=== PATIENT | female | born 1965 | race Caucasian/White ===

== ENCOUNTER 2016-11-26 08:31 | Emergency (ER) | payer BC, OTHER ==
[2016-11-26 08:43] VITALS: BP 120/73
--- NOTE | 2016-11-26 08:58 | EDM.PDOC ---
ED HPI GENERAL MEDICAL PROBLEM - General Chief Complaint: Abdominal Pain Stated Complaint: POSSIBLE APPENDIX ISSUE Time Seen by Provider: 11/26/16 08:57 - History of Present Illness INITIAL COMMENTS - FREE TEXT/NARRATIVE: 51-year-old female presents emergency room with abdominal pain. The pain started yesterday afternoon probably 3:00 this progressively gotten worse she had difficulty sleeping through the night. She has not had nausea or vomiting with this him a her stools have been perhaps a little looser than normal, she's had a cholecystectomy in the past and has had intermittent problems with this in the past. 2 nights ago she had heartburn and it sounds like a little bit of reflux and vomited one time but that was before this pain started. Patient states the pain is in the right lower abdomen. Right Middle Abdominal Pain Score (Numeric/FACES): 6 - Related Data Allergies Allergy/AdvReac Type Severity Reaction Status Date / Time corn Allergy Cannot Verified 10/29/15 14:18 Remember mold Allergy Cannot Verified 10/29/15 14:18 Remember yeast, dried [yeast] Allergy Cannot Verified 10/29/15 14:18 Remember Home Meds: Home Meds Fexofenadine/Pseudoephedrine [Karishma-D 12 Hour] 1 tab PO DAILY PRN 10/29/15 [ History] Hydrocodone/Acetaminophen [[place] 5-325 Tablet] 1 - 2 each PO Q6H PRN #40 tablet 10/30/15 [Rx] Ondansetron [Zofran ODT] 4 mg PO Q6H PRN #10 tab.dis 11/26/16 [Rx] Past Medical History HEENT History: Reports: Sinusitis Cardiovascular History: Reports: None Respiratory History: Reports: None Gastrointestinal History: Reports: Other (See Below) Other Gastrointestinal History: epigastric pain [employer] History: Reports: Other OB/BYN History: breast augmentation Musculoskeletal History: Reports: Back Pain, Chronic, Fracture - Past Surgical History HEENT Surgical History: Reports: Tonsillectomy GI Surgical History: Reports: Cholecystectomy, Colonoscopy, Hernia Repair/Other Female Surgical History: Reports: Section, Hysterectomy, LEEP Neurological Surgical History: Reports: C-Spine Musculoskeletal Surgical History: Reports: Other (See Below) Social & Family History - Family History Cardiac: Reports: Hypertension Endocrine/Metabolic: Reports: Hyperthyroidism - Tobacco Use Smoking Status *Q: Current Every Day Smoker Years of Tobacco use: 30 Packs/Tins Daily: 0.5 - Recreational Drug Use Recreational Drug Use: No ED ROS GENERAL - Review of Systems Review Of Systems: See Below Constitutional: Reports: No Symptoms Respiratory: Reports: No Symptoms Cardiovascular: Reports: No Symptoms GI/Abdominal: Reports: Abdominal Pain, Nausea, Vomiting. Denies: Constipation, Diarrhea : Reports: No Symptoms Neurological: Reports: No Symptoms ED EXAM, GI/ABD - Physical Exam Exam: See Below Exam Limited By: No Limitations General Appearance: Alert, No Apparent Distress Respiratory/Chest: No Respiratory Distress, Lungs Clear, Normal Breath Sounds Cardiovascular: Regular Rate, Rhythm, No Edema, No Murmur GI/Abdominal: Normal Bowel Sounds, Soft, Other (Is mild right lower quadrant discomfort with palpation no rebound discomfort or guarding however with rebound testing on the left lower abdomen she had a shooting pain into the right lower abdomen) Back Exam: Normal Inspection. No: CVA Tenderness (L), CVA Tenderness (R) Extremities: Normal Inspection Neurological: Alert, Oriented Course - Vital Signs Last Recorded V/S: Last Vital Signs Temp 37.2 C 11/26/16 08:40 Pulse 65 11/26/16 08:40 Resp 16 11/26/16 08:40 BP 120/73 11/26/16 08:40 Pulse Ox 97 11/26/16 08:40 - Orders/Labs/Meds Orders: Active Orders 24 hr Category Date Time Status Sodium Chloride 0.9% [Saline Flush] Med 11/26/16 11:18 Active 10 ml FLUSH ONETIME PRN Medication Orders Sodium Chloride (Saline Flush) 10 ml FLUSH ONETIME PRN PRN Reason: IV FLUSH Last Admin: 11/26/16 12:11 Dose: 10 ml Labs: Laboratory Tests 11/26/16 11/26/16 11/26/16 Range/Units 08:45 08:45 09:26 WBC 6.96 (3.98-10.04) K/mm3 RBC 4.77 (3.98-5.22) M/mm3 Hgb 13.9 (11.2-15.7) gm/L Hct 42.6 (34.1-44.9) % MCV 89.3 (79.4-94.8) fl MCH 29.1 (25.6-32.2) pg MCHC 32.6 (32.2-35.5) g/dl RDW Std Deviation 44.1 (36.4-46.3) fL Plt Count 305 (182-369) K/mm3 MPV 9.4 (9.4-12.3) fl Neutrophils % (Manual) 55 (40-60) % Band Neutrophils % 0 (0-10) % Lymphocytes % (Manual) 31 (20-40) % Atypical Lymphs % 0 % Monocytes % (Manual) 5 (2-10) % Eosinophils % (Manual) 8 H (0.7-5.8) % Basophils % (Manual) 1 (0.1-1.2) Platelet Estimate Adequate RBC Morph Comment Normal Sodium (136-145) mEq/L Potassium (3.5-5.1) mEq/L Chloride (98-107) mEq/L Carbon Dioxide (21-32) mEq/L Anion Gap (5-15) BUN (7-18) mg/dL Creatinine (0.55-1.02) mg/dL Est Cr Clr Drug Dosing Estimated GFR (MDRD) (>60) mL/min BUN/Creatinine Ratio (14-18) Glucose (74-106) mg/dL Calcium (8.5-10.1) mg/dL Total Bilirubin (0.2-1.0) mg/dL AST (15-37) U/L ALT (14-59) U/L Alkaline Phosphatase (46-116) U/L Total Protein (6.4-8.2) g/dl Albumin (3.4-5.0) g/dl Globulin gm/dL Albumin/Globulin Ratio (1-2) Urine Color Yellow (Yellow) Urine Appearance Clear (Clear) Urine pH 6.0 (5.0-8.0) Ur Specific [place] 1.025 (1.005-1.030) Urine Protein Negative (Negative) Urine Glucose (UA) Negative (Negative) Urine Ketones Negative (Negative) Urine Occult Blood Trace-lysed H (Negative) Urine Nitrite Negative (Negative) Urine Bilirubin Negative (Negative) Urine Urobilinogen 0.2 (0.2-1.0) Ur Leukocyte Esterase Negative (Negative) Urine RBC 0-5 (0-5) /hpf Urine WBC 0-5 (0-5) /hpf Ur Epithelial Cells 5-10 H (0-5) /hpf Urine Bacteria Moderate H (FEW) /hpf Urine Mucus Few (FEW) /hpf Urine HCG, Qual Negative (NEGATIVE) 11/26/16 Range/Units 09:26 WBC (3.98-10.04) K/mm3 RBC (3.98-5.22) M/mm3 Hgb (11.2-15.7) gm/L Hct (34.1-44.9) % MCV (79.4-94.8) fl MCH (25.6-32.2) pg MCHC (32.2-35.5) g/dl RDW Std Deviation (36.4-46.3) fL Plt Count (182-369) K/mm3 MPV (9.4-12.3) fl Neutrophils % (Manual) (40-60) % Band Neutrophils % (0-10) % Lymphocytes % (Manual) (20-40) % Atypical Lymphs % % Monocytes % (Manual) (2-10) % Eosinophils % (Manual) (0.7-5.8) % Basophils % (Manual) (0.1-1.2) Platelet Estimate RBC Morph Comment Sodium 145 (136-145) mEq/L Potassium 4.5 (3.5-5.1) mEq/L Chloride 108 H (98-107) mEq/L Carbon Dioxide 27 (21-32) mEq/L Anion Gap 14.5 (5-15) BUN 16 (7-18) mg/dL Creatinine 0.9 (0.55-1.02) mg/dL Est Cr Clr Drug Dosing TNP Estimated GFR (MDRD) > 60 (>60) mL/min BUN/Creatinine Ratio 17.8 (14-18) Glucose 97 (74-106) mg/dL Calcium 8.9 (8.5-10.1) mg/dL Total Bilirubin 0.9 (0.2-1.0) mg/dL AST 17 (15-37) U/L ALT 29 (14-59) U/L Alkaline Phosphatase 114 (46-116) U/L Total Protein 7.1 (6.4-8.2) g/dl Albumin 3.8 (3.4-5.0) g/dl Globulin 3.3 gm/dL Albumin/Globulin Ratio 1.2 (1-2) Urine Color (Yellow) Urine Appearance (Clear) Urine pH (5.0-8.0) Ur Specific [place] (1.005-1.030) Urine Protein (Negative) Urine Glucose (UA) (Negative) Urine Ketones (Negative) Urine Occult Blood (Negative) Urine Nitrite (Negative) Urine Bilirubin (Negative) Urine Urobilinogen (0.2-1.0) Ur Leukocyte Esterase (Negative) Urine RBC (0-5) /hpf Urine WBC (0-5) /hpf Ur Epithelial Cells (0-5) /hpf Urine Bacteria (FEW) /hpf Urine Mucus (FEW) /hpf Urine HCG, Qual (NEGATIVE) Meds: Medications Generic Name Dose Route Start Last Admin Trade Name Freq PRN Reason Stop Dose Admin Sodium Chloride 10 ml 11/26/16 11:18 11/26/16 12:11 Saline Flush FLUSH 10 ml ONETIME PRN Administration IV FLUSH Discontinued Medications Generic Name Dose Route Start Last Admin Trade Name Freq PRN Reason Stop Dose Admin Diatrizoate Meglum/Diatrizoate Sod 90 ml 11/26/16 11:18 11/26/16 12:11 Gastrografin 37% PO 11/26/16 11:19 90 ml ONETIME ONE Administration Lactated Ringer's 1,000 mls @ 999 mls/hr 11/26/16 10:45 11/26/16 11:00 Ringers, Lactated IV 11/26/16 11:45 999 mls/hr .BOLUS ONE Administration Iopamidol 100 ml 11/26/16 11:18 11/26/16 12:11 Isovue-300 (61%) IVPUSH 11/26/16 11:19 100 ml ONETIME ONE Administration - Re-Assessments/Exams Free Text/Narrative Re-Assessment/Exam: 11/26/16 09:46 Labs and x-ray ordered the patient is not need anything for pain at this time. 11/26/16 10:44 Return evaluation nondiagnostic x-ray is needed for acute abdominal changes. Repeat examination shows slightly worsening discomfort with palpation in the right lower quadrant no definitive rebound or guarding. Further evaluation discussed with the patient we will proceed with a CT scan 11/26/16 12:54 CT examination is unrevealing the appendix is well-visualized and appears normal. No other inflammatory changes or free fluid seen. Patient has been informed of the results of this point we'll discharge the patient home liquid diet for 24 hours and slowly advance as tolerated recheck in 24 hours if not better sooner if getting worse. Departure - Departure Time of Disposition: 12:54 Disposition: Home, Self-Care 01 Clinical Impression: Abdominal pain of unknown etiology - Discharge Information Forms: ED Department Discharge Additional Instructions: Return to the emergency room with any questions or problems. Return in 24 hours if not better sooner if getting worse. Clear liquid diet for the next 24 hours then slowly advance as tolerated. You have be started on Zofran, this is to be used as needed for nausea. One every 6 hours as needed. - My Orders Last 24 Hours: My Active Orders 11/26/16 11:18 Sodium Chloride 0.9% [Saline Flush] 10 ml FLUSH ONETIME PRN - Assessment/Plan Last 24 Hours: My Active Orders 11/26/16 11:18 Sodium Chloride 0.9% [Saline Flush] 10 ml FLUSH ONETIME PRN
--- NOTE | 2016-11-26 09:57 | CR ---
Abdomen: Supine view of the abdomen was obtained. Comparison: Previous abdominal x-ray of 06/10/15. Surgical clips noted from prior cholecystectomy. Other surgical material is seen within the mid abdomen which is stable from prior exam. Bowel gas pattern appears normal. No abnormal calcifications or soft tissue abnormality is seen. Bony structures appear within normal limits for the patient's age. Impression: 1. Incidental findings. Diagnostic code #2
[2016-11-26] MEDS ORDERED: Lactated Ringers 1,000 ML IV ONE (10:45)
[2016-11-26] MEDS ORDERED: Sodium Chloride 0.9% 10 ML Syringe FLUSH PRN (11:18)
[2016-11-26] MEDS ORDERED: Iopamidol 612 MG/ML 100 ML Bottle IVPUSH ONE (11:18)
[2016-11-26] MEDS ORDERED: Diatrizoate Meglumine/Diatrizoate Sodium 37% 120 ML Bottle PO ONE (11:18)
--- NOTE | 2016-11-26 12:42 | CT ---
CT abdomen and pelvis Technique: Multiple axial sections were obtained from above the dome of the diaphragm inferiorly through the pubic symphysis. Intravenous and oral contrast was utilized. Delayed images were also obtained through the bladder. Comparison: Previous CT abdomen and pelvis study performed as a ureteral stone protocol dated 06/11/15. Findings: Small portion of the visualized lung bases shows linear scarring on the left side. Nothing acute is seen. Minimal low density areas are seen within the left lobe of liver measuring around 2 mm in size which is felt to be incidental. Liver is otherwise unremarkable. Spleen appears normal. Adrenal glands show no nodule. Pancreas is within normal limits. Surgical clips are seen from prior cholecystectomy. Kidneys show symmetric contrast enhancement without hydronephrosis or mass. Aorta shows no aneurysmal dilatation. No retroperitoneal adenopathy is seen. No mesenteric abnormalities are seen. Surgical material is seen within the anterior abdominal wall. No pelvic mass or adenopathy is seen. Appendix is seen which appears normal. No bowel dilatation is seen. No inflammatory change or free fluid is seen. Delayed images shows contrast within the bladder. Bone window settings were reviewed which appears within normal limits for the patient's age. Impression: 1. Incidental findings. Nothing acute is appreciated on CT study of the abdomen and pelvis. Diagnostic code #2
== END 2016-11-26 13:20 | disposition home or self-care (01) ==
LOC: JD.ED 08:31
DX: R10.31 Right lower quadrant pain (principal); F17.210 Nicotine dependence, cigarettes, uncomplicated; Z91.018 Allergy to other foods; Z79.899 Other long term (current) drug therapy; Z98.890 Other specified postprocedural states; Z90.49 Acquired absence of other specified parts of digestive tract; Z90.710 Acquired absence of both cervix and uterus
CPT/HCPCS: 36415; 74000; 74177; 80053; 81001; 81025; 85025; 96360; 99285; J7050; J7120; Q9963; Q9967; 99284

== ENCOUNTER 2018-04-04 10:25 | Emergency (ER) | payer OTHER, BC ==
[2018-04-04 10:34] VITALS: BP 132/85
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
== END 2018-04-04 11:25 | disposition home or self-care (01) ==
LOC: JD.ED 10:25
DX: M25.512 Pain in left shoulder (principal); M25.552 Pain in left hip; F17.210 Nicotine dependence, cigarettes, uncomplicated; Z91.048 Other nonmedicinal substance allergy status; Z79.899 Other long term (current) drug therapy; V43.53XA Car driver injured in collision with pick-up truck in traffic accident, initial encounter
CPT/HCPCS: 99283; 99284

== ENCOUNTER 2019-06-01 18:00 | Emergency (ER) | payer BC | END 2019-06-01 18:15 | LOC: JD.ED 18:00 | DX: Z53.21 Procedure and treatment not carried out due to patient leaving prior to being seen by health care provider (principal) ==

== ENCOUNTER 2021-05-25 10:40 | Emergency (ER) | payer MEDICAID ==
[2021-05-25] MEDS ORDERED: Sodium Chloride 0.9% 10 ML Syringe FLUSH PRN (11:00)
[2021-05-25] MEDS ORDERED: Ondansetron 4 MG/2 ML SDV IVPUSH ONE (11:00)
[2021-05-25] MEDS ORDERED: Sodium Chloride 0.9% 1,000 ML IV SCH (11:00)
[2021-05-25] MEDS ORDERED: Albuterol/Ipratropium 3.0-0.5 MG/3 ML Neb Soln NEB ONE (11:01)
[2021-05-25] MEDS ORDERED: diphenhydrAMINE 50 MG/ML SDV IVPUSH PRN (11:03)
[2021-05-25] MEDS ORDERED: methylPREDNISolone Sodium Succinate 125 MG/2 ML SDV IVPUSH PRN (11:03)
[2021-05-25] MEDS ORDERED: EPINEPHrine 1 MG/ML SDV IM PRN (11:03)
[2021-05-25] MEDS ORDERED: Famotidine 20 MG/2 ML SDV IVPUSH PRN (11:03)
[2021-05-25] MEDS ORDERED: Sodium Chloride 0.9% 10 ML Syringe FLUSH SCH (11:15)
--- NOTE | 2021-05-25 12:33 | CR ---
Chest: Frontal view of the chest was obtained. Comparison: No prior chest imaging is available Heart size and mediastinum are normal. Very minimal density is seen within the left lung base most likely due to slight atelectasis. Lungs otherwise are clear. Bony structures show nothing acute. Impression: 1. Findings suspicious for minimal left basilar atelectasis. 2. Nothing acute is seen on frontal chest x-ray. Diagnostic code #2
[2021-05-25] MEDS ORDERED: Dexamethasone 4 MG Tab PO ONE (14:20)
--- NOTE | 2021-05-25 14:20 | EDM.PDOC ---
ED HPI GENERAL MEDICAL PROBLEM - General Chief Complaint: General Stated Complaint: COVID+ HEAVY CHEST Time Seen by Provider: 05/25/21 10:53 Source of Information: Reports: Patient History Limitations: Reports: No Limitations - History of Present Illness INITIAL COMMENTS - FREE TEXT/NARRATIVE: The patient presents presents with COVID. She was diagnosed on the . She has fever, chills, cough, nausea and generalized weakness. She is looking to get the monoclonal antibodies. She has no diarrhea or vomiting. She has no health problems like asthma, COPD, or heart disease. She does smoke but has not smoked since she got diagnosed. Onset: Gradual Duration: Day(s): Severity: Mild Improves with: Reports: None Worsens with: Reports: None Associated Symptoms: Reports: Cough, Fever/Chills, Nausea/Vomiting Chest Pain Score (Numeric/FACES): 3 - Related Data Allergies Allergy/AdvReac Type Severity Reaction Status Date / Time corn Allergy Cannot Verified 05/25/21 10:57 Remember mold Allergy Cannot Verified 05/25/21 10:57 Remember yeast, dried [yeast] Allergy Cannot Verified 05/25/21 10:57 Remember Home Meds: Home Meds Fexofenadine/Pseudoephedrine [Karishma-D 12 Hour] 1 tab PO DAILY PRN 10/29/15 [History] Hydrocodone/Acetaminophen [[place] 5-325 Tablet] 1 - 2 each PO Q6H PRN #40 tablet 10/30/15 [Rx] Ibuprofen [Advil] 2 - 3 tab PO Q6H PRN 04/04/18 [History] dexAMETHasone [Dexamethasone] 6 mg PO Q6H #12 tab 05/25/21 [Rx] Past Medical History HEENT History: Reports: Sinusitis Cardiovascular History: Reports: None Respiratory History: Reports: None Gastrointestinal History: Reports: Other (See Below) Other Gastrointestinal History: epigastric pain Genitourinary History: Reports: UTI, Recurrent DIGITAL ASSET SPECIALIST History: Reports: Other DIGITAL ASSET SPECIALIST History: breast augmentation Musculoskeletal History: Reports: Back Pain, Chronic, Fracture Neurological History: Reports: Head Trauma - Infectious Disease History Infectious Disease History: Reports: Chicken Pox, Measles - Past Surgical History HEENT Surgical History: Reports: Tonsillectomy GI Surgical History: Reports: Cholecystectomy, Colonoscopy, Hernia, Abdominal Female Surgical History: Reports: Breast Implant, Section, Hysterectomy, LEEP Neurological Surgical History: Reports: C-Spine Musculoskeletal Surgical History: Reports: ORIF, Other (See Below) Other Musculoskeletal Surgeries/Procedures:: plate to neck, wrist surgery--plate, pins to fingers Social & Family History - Family History Cardiac: Reports: Hypertension Endocrine/Metabolic: Reports: Hyperthyroidism - Tobacco Use Tobacco Use Status *Q: Current Every Day Tobacco User Years of Tobacco use: 30 Packs/Tins Daily: 0.1 - Caffeine Use Caffeine Use: Reports: None - Living Situation & Occupation Living situation: Reports: , with Significant Other (Boyfriend) Occupation: Employed ([employer]) ED ROS GENERAL - Review of Systems Review Of Systems: See Below Constitutional: Reports: Fever, Chills, Malaise, Weakness, Fatigue HEENT: Reports: No Symptoms Respiratory: Reports: Shortness of Breath, Cough Cardiovascular: Reports: No Symptoms Endocrine: Reports: No Symptoms GI/Abdominal: Reports: Nausea. Denies: Abdominal Pain, Vomiting ED EXAM, GENERAL - Physical Exam Exam: See Below Exam Limited By: No Limitations General Appearance: Alert, No Apparent Distress Ears: Normal External Exam Nose: Normal Inspection Head: Atraumatic, Normocephalic Neck: Normal Inspection Respiratory/Chest: No Respiratory Distress, Lungs Clear, Normal Breath Sounds Cardiovascular: Regular Rate, Rhythm, No Edema, No Murmur GI/Abdominal: Soft, Non-Tender, No Organomegaly, No Mass Extremities: Normal Inspection #1 Interpretation EKG Date: 05/25/21 Time: 10:48 Rhythm: NSR Rate (Beats/Min): 67 [place]: Normal P-Wave: Present QRS: Normal ST-T: Normal QT: Normal Course - Vital Signs Last Recorded V/S: Last Vital Signs Temp 97.8 F 05/25/21 10:54 Pulse 59 L 05/25/21 10:54 Resp 16 05/25/21 10:54 BP 106/75 05/25/21 10:54 Pulse Ox 95 05/25/21 11:01 - Orders/Labs/Meds Orders: Active Orders 24 hr Category Date Time Status Cardiac Monitoring [RC] . DIRECTED Care 05/25/21 11:00 Active Peripheral IV Care [RC] . DIRECTED Care 05/25/21 11:00 Active RT Aerosol Therapy [RC] ASDIRECTED Care 05/25/21 11:01 Active Vital Signs [RC] Q15M Care 05/25/21 11:03 Active EPINEPHrine [Adrenalin] Med 05/25/21 11:03 Active 0.3 mg IM ASDIRECTED PRN Famotidine [Pepcid] Med 05/25/21 11:03 Active 20 mg IVPUSH ASDIRECTED PRN Sodium Chloride 0.9% [Normal Saline] 1,000 ml Med 05/25/21 11:00 Active IV .BOLUS Sodium Chloride 0.9% [Saline Flush] Med 05/25/21 11:00 Active 10 ml FLUSH ASDIRECTED PRN Sodium Chloride 0.9% [Saline Flush] Med 05/25/21 11:15 Active 30 ml FLUSH ASDIRECTED diphenhydrAMINE [Benadryl] Med 05/25/21 11:03 Active 50 mg IVPUSH ASDIRECTED PRN methylPREDNISolone Sod Succ [Solu-MEDROL] Med 05/25/21 11:03 Active 125 mg IVPUSH ASDIRECTED PRN ED Antiemetic Medication Reflex [OM.PC] Stat Oth 05/25/21 11:00 Ordered Peripheral IV Insertion Adult [OM.PC] Stat Oth 05/25/21 11:00 Ordered Medication Orders Diphenhydramine HCl (Diphenhydramine 50 Mg/Ml Sdv) 50 mg IVPUSH ASDIRECTED PRN PRN Reason: hypersensitivity reaction Epinephrine HCl (Epinephrine 1 Mg/Ml Sdv) 0.3 mg IM ASDIRECTED PRN PRN Reason: hypersensitivity reaction Famotidine (Famotidine 20 Mg/2 Ml Sdv) 20 mg IVPUSH ASDIRECTED PRN PRN Reason: hypersensitivity reaction Sodium Chloride (Normal Saline) 1,000 mls @ 1,000 mls/hr IV .BOLUS LION Last Admin: 05/25/21 11:30 Dose: 1,000 mls/hr Documented by: JANICE Methylprednisolone Sodium Succinate (Methylprednisolone Sodium Succinate 125 Mg/2 Ml Sdv) 125 mg IVPUSH ASDIRECTED PRN PRN Reason: hypersensitivity reaction Sodium Chloride (Sodium Chloride 0.9% 10 Ml Syringe) 30 ml FLUSH ASDIRECTED LION Sodium Chloride (Sodium Chloride 0.9% 10 Ml Syringe) 10 ml FLUSH ASDIRECTED PRN PRN Reason: Keep Vein Open Labs: Laboratory Tests 05/25/21 05/25/21 05/25/21 Range/Units 11:20 11:20 11:20 WBC 3.49 L (3.98-10.04) K/mm3 RBC 4.76 (3.98-5.22) M/mm3 Hgb 13.9 (11.2-15.7) gm/dl Hct 42.8 (34.1-44.9) % MCV 89.9 (79.4-94.8) fl MCH 29.2 (25.6-32.2) pg MCHC 32.5 (32.2-35.5) g/dl RDW Std Deviation 41.9 (36.4-46.3) fL Plt Count 213 D (182-369) K/mm3 MPV 9.7 (9.4-12.3) fl Neut % (Auto) 40.6 (34.0-71.1) % Lymph % (Auto) 45.3 (19.3-51.7) % [place]th % (Auto) 12.6 H (4.7-12.5) % Eos % (Auto) 0.9 (0.7-5.8) Baso % (Auto) 0.3 (0.1-1.2) % Neut # (Auto) 1.42 L (1.56-6.13) K/mm3 Lymph # (Auto) 1.58 (1.18-3.74) K/mm3 Smyth # (Auto) 0.44 H (0.24-0.36) K/mm3 Eos # (Auto) 0.03 L (0.04-0.36) K/mm3 Baso # (Auto) 0.01 (0.01-0.08) K/mm3 D-Dimer, Quantitative 0.37 (0.19-0.50) mg/L Sodium 139 (136-145) mEq/L Potassium 3.8 (3.5-5.1) mEq/L Chloride 107 (98-107) mEq/L Carbon Dioxide 22 (21-32) mEq/L Anion Gap 13.8 (5-15) BUN 16 (7-18) mg/dL Creatinine 0.8 (0.55-1.02) mg/dL Est Cr Clr Drug Dosing TNP Estimated GFR (MDRD) > 60 (>60) mL/min BUN/Creatinine Ratio 20.0 H (14-18) Glucose 85 (70-99) mg/dL Lactic Acid (0.4-2.0) mmol/L Calcium 8.3 L (8.5-10.1) mg/dL Total Bilirubin 0.3 (0.2-1.0) mg/dL AST 27 (15-37) U/L ALT 48 (14-59) U/L Alkaline Phosphatase 110 (46-116) U/L Troponin I < 0.017 (0.00-0.056) ng/mL C-Reactive Protein <0.2 (<1.0) mg/dL Total Protein 6.9 (6.4-8.2) g/dl Albumin 3.5 (3.4-5.0) g/dl Globulin 3.4 gm/dL Albumin/Globulin Ratio 1.0 (1-2) // Range/Units 11:20 WBC (3.98-10.04) K/mm3 RBC (3.98-5.22) M/mm3 Hgb (11.2-15.7) gm/dl Hct (34.1-44.9) % MCV (79.4-94.8) fl MCH (25.6-32.2) pg MCHC (32.2-35.5) g/dl RDW Std Deviation (36.4-46.3) fL Plt Count (182-369) K/mm3 MPV (9.4-12.3) fl Neut % (Auto) (34.0-71.1) % Lymph % (Auto) (19.3-51.7) % [place] % (Auto) (4.7-12.5) % Eos % (Auto) (0.7-5.8) Baso % (Auto) (0.1-1.2) % Neut # (Auto) (1.56-6.13) K/mm3 Lymph # (Auto) (1.18-3.74) K/mm3 [place]th # (Auto) (0.24-0.36) K/mm3 Eos # (Auto) (0.04-0.36) K/mm3 Baso # (Auto) (0.01-0.08) K/mm3 D-Dimer, Quantitative (0.19-0.50) mg/L Sodium (136-145) mEq/L Potassium (3.5-5.1) mEq/L Chloride (98-107) mEq/L Carbon Dioxide (21-32) mEq/L Anion Gap (5-15) BUN (7-18) mg/dL Creatinine (0.55-1.02) mg/dL Est Cr Clr Drug Dosing Estimated GFR (MDRD) (>60) mL/min BUN/Creatinine Ratio (14-18) Glucose (70-99) mg/dL Lactic Acid 1.0 (0.4-2.0) mmol/L Calcium (8.5-10.1) mg/dL Total Bilirubin (0.2-1.0) mg/dL AST (15-37) U/L ALT (14-59) U/L Alkaline Phosphatase (46-116) U/L Troponin I (0.00-0.056) ng/mL C-Reactive Protein (<1.0) mg/dL Total Protein (6.4-8.2) g/dl Albumin (3.4-5.0) g/dl Globulin gm/dL Albumin/Globulin Ratio (1-2) Meds: Medications Generic Name Dose Route Start Last Admin Trade Name Freq PRN Reason Stop Dose Admin Diphenhydramine HCl 50 mg 05/25/21 11:03 Diphenhydramine 50 Mg/Ml Sdv IVPUSH ASDIRECTED PRN hypersensitivity reaction Epinephrine HCl 0.3 mg 05/25/21 11:03 Epinephrine 1 Mg/Ml Sdv IM ASDIRECTED PRN hypersensitivity reaction Famotidine 20 mg 05/25/21 11:03 Famotidine 20 Mg/2 Ml Sdv IVPUSH ASDIRECTED PRN hypersensitivity reaction Sodium Chloride 1,000 mls @ 1,000 mls/hr 05/25/21 11:00 05/25/21 11:30 Normal Saline IV 1,000 mls/hr .BOLUS LION Administration Methylprednisolone Sodium Succinate 125 mg 05/25/21 11:03 Methylprednisolone Sodium Succinate 125 Mg/2 Ml Sdv IVPUSH ASDIRECTED PRN hypersensitivity reaction Sodium Chloride 30 ml 05/25/21 11:15 Sodium Chloride 0.9% 10 Ml Syringe FLUSH ASDIRECTED LION Sodium Chloride 10 ml 05/25/21 11:00 Sodium Chloride 0.9% 10 Ml Syringe FLUSH ASDIRECTED PRN Keep Vein Open Discontinued Medications Generic Name Dose Route Start Last Admin Trade Name Freq PRN Reason Stop Dose Admin Albuterol/Ipratropium 3 ml 05/25/21 11:01 05/25/21 11:13 Albuterol/Ipratropium 3.0-0.5 Mg/3 Ml Neb Soln NEB 05/25/21 11:02 3 ml ONETIME ONE Administration Bamlanivimab 700 mg/ 310 mls @ 310 mls/hr 05/25/21 12:00 05/25/21 11:43 Etesevimab 1,400 mg/ Sodium IV 05/25/21 12:59 310 mls/hr Chloride ONETIME ONE Administration Ondansetron HCl 4 mg 05/25/21 11:00 05/25/21 11:25 Ondansetron 4 Mg/2 Ml Sdv IVPUSH 05/25/21 11:01 4 mg ONETIME ONE Administration - Re-Assessments/Exams Free Text/Narrative Re-Assessment/Exam: 05/25/21 14:19 I ordered an IV NS 1L bolus, zofran 4mg IV, regeneron, CXR, and labs. Her CXR looks good. Her WBC is low at 3.49. Her D-dimer was negative. Her CMP looks good. Her troponin is negative. Her CRP is normal. 05/25/21 14:22 She feels better. I will get her on some dexamethasone. 05/25/21 14:22 Her CXR looks good. It shows no sign of COVID pneumonia. Departure - Departure Time of Disposition: 14:25 Disposition: Home, Self-Care 01 Condition: Good Clinical Impression: COVID - Discharge Information *PRESCRIPTION DRUG MONITORING PROGRAM REVIEWED*: Not Applicable *COPY OF PRESCRIPTION DRUG MONITORING REPORT IN PATIENT ELIANE: Not Applicable Prescriptions: dexAMETHasone [Dexamethasone] 6 mg PO Q6H #12 tab Referrals: Yessica Pulido NP [Primary Care Provider] - 1 Week Additional Instructions: Take the dexamethasone 1.5 pills daily until gone. Take tylenol or motrin as needed for fever or pain. Drink plenty of fluids. Use your inhaler as needed for shortness of breath. Please return if you are worse. Sepsis Event Note (ED) - Evaluation Sepsis Screening Result: No Definite Risk - Focused Exam Vital Signs: Vital Signs Temp Pulse Resp BP Pulse Ox Pulse Ox 05/25/21 11:01 95 05/25/21 10:54 97.8 F 59 L 16 106/75 94 L - My Orders Last 24 Hours: My Active Orders 05/25/21 11:00 Cardiac Monitoring [RC] . DIRECTED Peripheral IV Care [RC] . DIRECTED Sodium Chloride 0.9% [Normal Saline] 1,000 ml IV .BOLUS Sodium Chloride 0.9% [Saline Flush] 10 ml FLUSH ASDIRECTED PRN ED Antiemetic Medication Reflex [OM.PC] Stat Peripheral IV Insertion Adult [OM.PC] Stat 05/25/21 11:01 RT Aerosol Therapy [RC] ASDIRECTED 05/25/21 11:03 Vital Signs [RC] Q15M EPINEPHrine [Adrenalin] 0.3 mg IM ASDIRECTED PRN Famotidine [Pepcid] 20 mg IVPUSH ASDIRECTED PRN diphenhydrAMINE [Benadryl] 50 mg IVPUSH ASDIRECTED PRN methylPREDNISolone Sod Succ [Solu-MEDROL] 125 mg IVPUSH ASDIRECTED PRN 05/25/21 11:15 Sodium Chloride 0.9% [Saline Flush] 30 ml FLUSH ASDIRECTED - Assessment/Plan Last 24 Hours: My Active Orders 05/25/21 11:00 Cardiac Monitoring [RC] . DIRECTED Peripheral IV Care [RC] . DIRECTED Sodium Chloride 0.9% [Normal Saline] 1,000 ml IV .BOLUS Sodium Chloride 0.9% [Saline Flush] 10 ml FLUSH ASDIRECTED PRN ED Antiemetic Medication Reflex [OM.PC] Stat Peripheral IV Insertion Adult [OM.PC] Stat 05/25/21 11:01 RT Aerosol Therapy [RC] ASDIRECTED 05/25/21 11:03 Vital Signs [RC] Q15M EPINEPHrine [Adrenalin] 0.3 mg IM ASDIRECTED PRN Famotidine [Pepcid] 20 mg IVPUSH ASDIRECTED PRN diphenhydrAMINE [Benadryl] 50 mg IVPUSH ASDIRECTED PRN methylPREDNISolone Sod Succ [Solu-MEDROL] 125 mg IVPUSH ASDIRECTED PRN 05/25/21 11:15 Sodium Chloride 0.9% [Saline Flush] 30 ml FLUSH ASDIRECTED
[2021-05-25 14:33] VITALS: BP 113/49; PULSE 56
== END 2021-05-25 14:33 | disposition home or self-care (01) ==
LOC: JD.ED 10:40
DX: U07.1 COVID-19 (principal); Z91.018 Allergy to other foods; Z91.048 Other nonmedicinal substance allergy status; Z72.0 Tobacco use
CPT/HCPCS: 36415; 71045; 80053; 83605; 84484; 85025; 85379; 86140; 93005; 94640; 96374; 99285; J2405; J7030; J7050; J8540; M0245; Q0245; 93010; 99284; J7620-GY

== ENCOUNTER 2021-09-10 11:28 | Emergency (ER) | payer BC, MEDICAID ==
[2021-09-10 12:11] VITALS: BP 110/80; PULSE 69
== END 2021-09-10 15:19 | disposition home or self-care (01) ==
LOC: JD.ED 11:28
DX: S09.90XA Unspecified injury of head, initial encounter (principal); M62.838 Other muscle spasm; Z91.018 Allergy to other foods; Z91.048 Other nonmedicinal substance allergy status; W01.198A Fall on same level from slipping, tripping and stumbling with subsequent striking against other object, initial encounter
CPT/HCPCS: 70450; 70450-26; 72125; 72125-26; 99283-25; 99284

== ENCOUNTER 2022-05-20 09:01 | Emergency (ER) | payer MEDICAID ==
[2022-05-20 10:30] VITALS: BP 117/56; PULSE 75
== END 2022-05-20 13:39 | disposition home or self-care (01) ==
LOC: JD.ED 09:01
DX: K21.9 Gastro-esophageal reflux disease without esophagitis (principal); Z91.018 Allergy to other foods; Z79.899 Other long term (current) drug therapy; Z90.49 Acquired absence of other specified parts of digestive tract; Z87.891 Personal history of nicotine dependence
CPT/HCPCS: 36415; 71045; 71045-26; 85025; 93005; 99284

== ENCOUNTER 2023-07-19 13:25 | Emergency (ER) | payer MEDICAID ==
[2023-07-19] MEDS ORDERED: Sodium Chloride 0.9% 10 ML Syringe FLUSH PRN (13:42)
[2023-07-19 14:09] LABS: APPEARANCE,URINE CLEAR (Clear); BILIRUBIN,URINE NEGATIVE (Negative); COLOR,URINE YELLOW (Yellow); GLUCOSE,URINE NEGATIVE (Negative); KETONES,URINE NEGATIVE (Negative); LEUKOCYTE ESTERASE,URINE 2+ (Negative); NITRITE,URINE NEGATIVE (Negative); OCCULT BLOOD,URINE TRACE-INTACT (Negative); PROTEIN,URINE NEGATIVE (Negative); UROBILINOGEN,URINE 0.2 (0.2-1.0)
[2023-07-19 14:27] LABS: BASOPHILS ABSOLUTE AUTO 0.1 K/mm3 (0.0-0.2); BASOPHILS PERCENT AUTO 0.9 % (0.0-1.0); EOSINOPHILS ABSOLUTE AUTO 0.3 K/mm3 (0.0-0.4); EOSINOPHILS PERCENT AUTO 3.5 % (0.0-6.0); HEMATOCRIT 40.8 % (37.0-47.0); HEMOGLOBIN 13.5 gm/dl (12.0-16.0); IMMATURE GRAN ABSOLUTE AUTO 0.02 K/mm3 (0.00-0.05); IMMATURE GRAN PERCENT AUTO 0.2 % (0.0-0.4); LYMPHOCYTES ABSOLUTE AUTO 3.2 K/mm3 (1.0-4.8); LYMPHOCYTES PERCENT AUTO 40.4 % (24.0-44.0); MEAN CORPUSCULAR HEMOGLOBIN 29.7 pg (28.0-32.0); MEAN CORPUSCULAR HGB CONC 33.1 g/dl (32.0-36.0); MEAN CORPUSCULAR VOLUME 89.9 fl (83.0-99.0); MEAN PLATELET VOLUME 8.9 fl (9.4-12.3); MONOCYTES ABSOLUTE AUTO 0.6 K/mm3 (0.0-0.8); NEUTROPHILS ABSOLUTE AUTO 3.8 K/mm3 (1.8-7.7); PLATELET COUNT,PLT 287 K/mm3 (150-400); RED BLOOD CELL COUNT 4.54 M/mm3 (4.10-5.30); WHITE BLOOD CELL COUNT,WBC 8.01 K/mm3 (3.9-11.3)
[2023-07-19 14:34] LABS: BACTERIA,URINE MODERATE /hpf (FEW); MUCUS,URINE MANY /hpf (FEW); WBC,URINE 20-30 /hpf (0-5)
[2023-07-19 14:58] LABS: A/G RATIO 0.9 (1-2); ALBUMIN 3.3 g/dl (3.4-5.0); ANION GAP 13.4 (5-15); BILIRUBIN TOTAL 0.8 mg/dL (0.2-1.0); BUN/CREATININE RATIO 17.5 (14-18); CALCIUM 8.6 mg/dL (8.5-10.1); CREATININE 0.8 mg/dL (0.55-1.02); EST CRCL DRUG DOSING (CG) 69.81 mL/min; MAGNESIUM 1.9 mg/dL (1.8-2.4); POTASSIUM,K 3.4 mEq/L (3.5-5.1); PROTEIN TOTAL,TP 6.8 g/dl (6.4-8.2)
[2023-07-19 16:00] VITALS: BP 121/65; PULSE 70
== END 2023-07-19 15:50 | disposition home or self-care (01) ==
LOC: JD.ED 13:25
DX: N39.0 Urinary tract infection, site not specified (principal); K21.9 Gastro-esophageal reflux disease without esophagitis; Z86.16 Personal history of COVID-19; Z90.49 Acquired absence of other specified parts of digestive tract; Z90.710 Acquired absence of both cervix and uterus; Z79.899 Other long term (current) drug therapy; Z91.018 Allergy to other foods; Z91.048 Other nonmedicinal substance allergy status
CPT/HCPCS: 36415; 71046; 71046-26; 80053; 81001; 83735; 84484; 85025; 93005; 93010; 99283; 99285

== ENCOUNTER 2024-04-01 13:31 | Emergency (ER) | payer MEDICAID ==
[2024-04-01 13:43] VITALS: BP 122/74; PULSE 70
[2024-04-01] MEDS: Sodium Chloride 0.9% 1,000 ML IV STA (14:42)
[2024-04-01] MEDS: Sodium Chloride 0.9% 10 ML Syringe FLUSH PRN (14:42)
[2024-04-01 14:56] LABS: BASOPHILS ABSOLUTE AUTO 0.1 K/mm3 (0.0-0.2); BASOPHILS PERCENT AUTO 0.7 % (0.0-1.0); EOSINOPHILS ABSOLUTE AUTO 0.2 K/mm3 (0.0-0.4); EOSINOPHILS PERCENT AUTO 1.7 % (0.0-6.0); HEMATOCRIT 43.6 % (37.0-47.0); HEMOGLOBIN 14.6 gm/dl (12.0-16.0); IMMATURE GRAN ABSOLUTE AUTO 0.15 K/mm3 (0.00-0.05); IMMATURE GRAN PERCENT AUTO 1.4 % (0.0-0.4); LYMPHOCYTES ABSOLUTE AUTO 1.5 K/mm3 (1.0-4.8); LYMPHOCYTES PERCENT AUTO 13.7 % (24.0-44.0); MEAN CORPUSCULAR HEMOGLOBIN 29.8 pg (28.0-32.0); MEAN CORPUSCULAR HGB CONC 33.5 g/dl (32.0-36.0); MEAN PLATELET VOLUME 9.2 fl (9.4-12.3); MONOCYTES ABSOLUTE AUTO 0.4 K/mm3 (0.0-0.8); MONOCYTES PERCENT AUTO 3.9 % (0.0-8.0); NEUTROPHILS ABSOLUTE AUTO 8.3 K/mm3 (1.8-7.7); NEUTROPHILS PERCENT AUTO 78.6 % (41.0-71.0); PLATELET COUNT,PLT 268 K/mm3 (150-400)
[2024-04-01 14:57] LABS: APPEARANCE,URINE SLT CLOUDY (Clear); BILIRUBIN,URINE NEGATIVE (Negative); COLOR,URINE YELLOW (Yellow); GLUCOSE,URINE NEGATIVE (Negative); KETONES,URINE NEGATIVE (Negative); LEUKOCYTE ESTERASE,URINE NEGATIVE (Negative); NITRITE,URINE NEGATIVE (Negative); OCCULT BLOOD,URINE NEGATIVE (Negative); PROTEIN,URINE NEGATIVE (Negative); UROBILINOGEN,URINE 0.2 (0.2-1.0)
[2024-04-01 15:08] LABS: AMORPHOUS SEDIMENT,URINE MANY /hpf (NOT SEEN); BACTERIA,URINE FEW /hpf (FEW); MUCUS,URINE FEW /hpf (FEW); RBC,URINE 0-5 /hpf (0-5); SQUAMOUS EPITHELIAL CELLS,UR 0-5 /hpf (0-5); WBC,URINE 0-5 /hpf (0-5)
[2024-04-01 15:31] LABS: ALBUMIN 3.3 g/dl (3.4-5.0); ANION GAP 14.2 (5-15); BILIRUBIN TOTAL 0.6 mg/dL (0.2-1.0); BUN/CREATININE RATIO 13.6 (14-18); CALCIUM 8.9 mg/dL (8.5-10.1); CREATININE 1.1 mg/dL (0.55-1.02); EST CRCL DRUG DOSING (CG) 50.16 mL/min; POTASSIUM,K 4.2 mEq/L (3.5-5.1); PROTEIN TOTAL,TP 6.5 g/dl (6.4-8.2)
== END 2024-04-01 16:49 | disposition home or self-care (01) ==
LOC: JD.ED 13:31
DX: R10.31 Right lower quadrant pain (principal); M54.50 Low back pain, unspecified; K21.9 Gastro-esophageal reflux disease without esophagitis; Z86.16 Personal history of COVID-19; Z79.899 Other long term (current) drug therapy; Z91.018 Allergy to other foods; Z91.048 Other nonmedicinal substance allergy status
CPT/HCPCS: 36415; 74176; 80053; 81001; 83690; 85025; 96360; 99284; J3490; J7030; 99282